=== PATIENT | female | born 1970 | race Caucasian/White ===

== ENCOUNTER → 2023-09-11 06:21 | Day surgery (SDC) | payer OTHER, SELFPAY | LOC: GI 06:21 | PROVIDERS: ATTENDING PHYSICIAN Internal Medicine | DX: Z12.11 Encounter for screening for malignant neoplasm of colon (principal); D12.3 Benign neoplasm of transverse colon; D12.5 Benign neoplasm of sigmoid colon; K57.30 Diverticulosis of large intestine without perforation or abscess without bleeding; K62.1 Rectal polyp; K22.89 Other specified disease of esophagus; K44.9 Diaphragmatic hernia without obstruction or gangrene; K31.7 Polyp of stomach and duodenum; K31.89 Other diseases of stomach and duodenum; R12 Heartburn | CPT/HCPCS: 45385; 45380; 43239; 88305; 88342 ==

== ENCOUNTER → 2023-10-09 09:38 | Outpatient (REF) | payer OTHER, SELFPAY | LOC: HWRAD 09:38 | PROVIDERS: ATTENDING PHYSICIAN Orthopaedic Surgery; FAMILY PHYSICIAN Emergency Medicine | DX: M25.511 Pain in right shoulder (principal) | CPT/HCPCS: 73200 ==

== ENCOUNTER 2023-10-15 06:17 | Day surgery (SDC) | payer OTHER, SELFPAY ==
[2023-10-13 13:57] VITALS: BMI 28.3
[2023-10-15] VITALS (12 sets, daily range): BP systolic 96–135; BP diastolic 73–85; BMI 28.3
[2023-10-15] MEDS: TYLENOL 1000 MG PO (12:30)
[2023-10-15] MEDS: NORMOSOL-R 1000 IV (12:31)
[2023-10-15] MEDS: CELEBREX 200 MG PO (12:31)
[2023-10-15] MEDS: DILAUDID 0.5 MG IV (17:42)
[2023-10-15] MEDS: ZOFRAN 4 MG IV (18:16)
== END 2023-10-15 19:32 | disposition home or self-care (01) ==
LOC: SDS 06:17
PROVIDERS: ATTENDING PHYSICIAN Orthopaedic Surgery Hand Surgery; FAMILY PHYSICIAN Emergency Medicine
DX: S42.201A Unspecified fracture of upper end of right humerus, initial encounter for closed fracture (principal); X58.XXXA Exposure to other specified factors, initial encounter
CPT/HCPCS: 23615; 36415; 73060; 76000; 93005; C1713

== ENCOUNTER → 2024-06-15 14:27 | Outpatient (REF) | payer OTHER, SELFPAY | LOC: PAVMRI 14:27 | PROVIDERS: ATTENDING PHYSICIAN Otolaryngology; FAMILY PHYSICIAN Emergency Medicine | DX: H93.11 Tinnitus, right ear (principal) | CPT/HCPCS: 70553; A9575 ==

== ENCOUNTER → 2024-07-28 13:02 | Outpatient (REF) | payer OTHER, SELFPAY | LOC: RCS 13:02 | PROVIDERS: ATTENDING PHYSICIAN Orthopaedic Surgery Hand Surgery; FAMILY PHYSICIAN Emergency Medicine | DX: Z01.818 Encounter for other preprocedural examination (principal) | CPT/HCPCS: 93005 ==

== ENCOUNTER → 2025-01-17 13:04 | Outpatient (REF) | payer OTHER, SELFPAY | LOC: HWWDC 13:04 | PROVIDERS: ATTENDING PHYSICIAN Nurse Practitioner Family | DX: N95.1 Menopausal and female climacteric states (principal); Z12.31 Encounter for screening mammogram for malignant neoplasm of breast | CPT/HCPCS: 77063; 77067; 77080 ==